=== PATIENT | female | born 1995 | race African-American/Black ===

== ENCOUNTER 2019-09-22 04:18 | Emergency (ER) | payer SELFPAY ==
[2019-09-22 04:25] VITALS: BP 134/75; PULSE 82; RESP 20; TEMP 36.4; O2SAT 100
--- NOTE | 2019-09-22 04:27 | ED_ITS ---
HPI - Female Genitourinary General Chief complaint: [employer] 2ND SHIFT Stated complaint: vaginal itching Time Seen by Provider: 09/22/19 04:20 Source: RN notes reviewed History of Present Illness HPI Narrative: Patient presents emergency department from home for vaginal discharge. Patient states symptoms been ongoing for the past 4 days. States she has had thick white discharge associated with itching. She denies any fevers or chills, abdominal pain nausea vomiting or any other symptoms. Denies any risk of STD. States she has had a history of yeast infection before in the past and feels similar. Patient states she also has been having some itching in the pubic region. She states she used [place] in the region approximately 1 week ago and since that time is noticed several small lesions in the hairline the been consistent with small pimples Related Data Allergies Allergy/AdvReac Type Severity Reaction Status Date / Time No Known Allergies Allergy Verified 09/22/19 04:29 Review of Systems Review of Systems: Narrative: Gen.: Denies fevers or chills ENT: Denies congestion Respiratory: Denies shortness of breath CV: Denies chest pain GI: Denies abdominal pain nausea, emesis or diarrhea see HPI Musculoskeletal: Denies back pain or muscle pain Neuro: Denies numbness or tingling Skin: Denies rash Except as documented, all other systems reviewed and negative PMFSH Past Medical History Medical History (Updated 09/22/19 @ 05:08 by Caleb Rowland DO) Patient denies significant medical history Social History Social History (Updated 09/22/19 @ 04:28 by Caleb Rowland DO) Smoking status: Never smoker Exam Narrative: Exam Narrative: APPEARANCE: No acute distress, nontoxic, resting in bed EYES: EOMI HEENT: Normocephalic, atraumatic, RESPIRATORY: No respiratory distress Clear to auscultation bilaterally with no rhonchi wheezing or rales. CARDIOVASCULAR: Regular rate and rhythm without murmurs rubs or gallops. ABDOMINAL: Soft, nontender, nondistended, no rebound or guarding : In the region of pubic hair there is pustules and erythema consistent with folliculitis, there is no swelling of the labia, there is a moderate amount of thick white discharge consistent with yeast infection, MUSCULOSKELETAl: Moves all extremities. NEURO: Awake and alert. Following commands, speech normal, no focal deficits SKIN:: Warm, dry. No rashes lesions or abrasions PSYCHIATRIC: Normal affect/mood, Course Course Emergency Course: Discussed with patient results of workup and diagnosis. Discussed need for follow-up with primary care, proper use of medication, and reasons to return to the emergency department. Patient understands and agrees to current treatment plan Discharge Plan Discharge Clinical Impression: Candidiasis of vagina, Folliculitis Patient Disposition: Home, Self-Care Condition: Stable Instructions: Antibiotic Form, Yeast Infection (ED), Folliculitis (ED) Additional Instructions: Return for abdominal pain, fever or any other symptoms of concern Prescriptions: New cephalexin [Keflex] 500 mg capsule 500 mg PO Q6H Qty: 21 RF: 0 fluconazole [Diflucan] 150 mg tablet 150 mg PO ONCE Qty: 1 RF: 0 Follow-up/Referrals: PHYSICIAN,HAMMER FITTER [Primary Care Provider] - Adama Lainez MD [Physician] - (Follow-up in 3 to 4 days for further SPEECH LANGUAGE PATHOLOGY ASSISTANT treatment and evaluation) Time of Disposition: 05:10
[2019-09-22] MEDS: FLUCONAZOLE 150 MG TABLET PO (04:56)
[2019-09-22] MEDS: CEPHALEXIN 500 MG CAPSULE PO (04:56)
[2019-09-22 05:17] VITALS: BP 118/84; PULSE 70; RESP 20; O2SAT 100
== END 2019-09-22 05:18 | disposition home or self-care (01) ==
PROVIDERS: Emergency Provider Emergency Medicine
DX: B37.3 Candidiasis of vulva and vagina (principal); L73.9 Follicular disorder, unspecified
CPT/HCPCS: 81025; 87070; 87491; 87591; 87808; 99284; A9270

== ENCOUNTER 2021-07-17 17:21 | Emergency (ER) | payer OTHER, SELFPAY ==
[2021-07-17 17:36] VITALS: BP 143/82; PULSE 78; RESP 16; TEMP 36.3; O2SAT 100
--- NOTE | 2021-07-17 17:50 | PC.NURSE ---
Patient walked out of ED without difficulty and in no distress.
== END 2021-07-18 04:32 | disposition left against medical advice (07) ==
DX: Z53.21 Procedure and treatment not carried out due to patient leaving prior to being seen by health care provider (principal)
CPT/HCPCS: 99199

== ENCOUNTER 2021-09-27 03:34 | Emergency (ER) | payer OTHER, SELFPAY ==
[2021-09-27 03:37] VITALS: BP 133/83; PULSE 84; RESP 17; TEMP 36.4; O2SAT 99
[2021-09-27] MEDS: LIDOCAINE HCL 2% JELLY 30 ML TUBE 1 APPLIC MUCOUS MEM (04:18)
--- NOTE | 2021-09-27 04:23 | ED.EAR ---
HPI - Ear Problem General Chief complaint: Ear Stated complaint: Left ear pain, decreased hearing. Time Seen by Provider: 09/27/21 03:39 Source: patient Mode of arrival: ambulatory Limitations: no limitations History of Present Illness HPI Narrative: This is a 25 year old female who presents for evaluation of left ear pain and cerumen impaction. Patient noticed left ear pain and decreased hearing on . She was evaluated by her PCP and diagnosed with cerumen impaction. She has an appointment with ENT on monday but her pain has gotten worse. She describes left throbbing ear pain. She denies ear drainage, fever , or chills. She has been having runny nose, congestion, cough . She was tested for covid and she reports it is negative. Related Data Allergies Allergy/AdvReac Type Severity Reaction Status Date / Time No Known Allergies Allergy Verified 09/27/21 03:39 Review of Systems Review of Systems: All systems reviewed & are unremarkable except as noted in HPI and below PMFSH Past Medical History Medical History (Updated 09/27/21 @ 05:43 by Shavon Zamora MD) Patient denies significant medical history Social History Social History (Updated 09/22/19 @ 04:28 by Caleb Rowland DO) Smoking status: Never smoker Exam Const: General: alert Orientation/consciousness: patient oriented x3 HENMT: Ears: TM normal on the right, Abnormal EAC present cerumen impaction and excessive cerumen; no edema and no otic discharge and TM abnormal obstructed by cerumen on the left Eyes: EOM: EOMs intact bilaterally Resp: Effort & Inspection: normal respiratory effort and no retractions Auscultation: clear to auscultation bilaterally Cardio: Rate: regular rate Rhythm: regular rhythm Heart sounds: no murmurs Skin: General skin exam: normal color Rashes: no rashes Neuro: General: patient oriented x3 and moves all extremities Psych: Mental Status: mental status grossly normal Affect: normal affect Course Reevaluation(s) Reevaluation #1: I irrigated patient's left ear. I was able to get some cerumen but there is still significant amount. Will place on antibiotics since unable to see TM. She will follow up with ENT on Monday. Date: 09/27/21 Time: 05:40 Vital Signs Vital signs: Vital Signs Temperature 97.6 F 09/27/21 03:37 Pulse Rate 84 09/27/21 03:37 Respiratory Rate 17 09/27/21 03:37 Blood Pressure 133/83 09/27/21 03:37 Pulse Oximetry 99 09/27/21 03:37 Temperature 97.6 F 09/27/21 03:37 Pulse Rate 84 09/27/21 03:37 Respiratory Rate 17 09/27/21 03:37 Blood Pressure 133/83 09/27/21 03:37 Pulse Oximetry 99 09/27/21 03:37 Procedures Ear Wax Removal Left Ear: Ear Wax Removal Date: 09/27/21 Ear Wax Removal Time: 05:00 Results: Re-examined: some cerumen remains and removal reattempted TM Examination: other (unable to see) Patient Tolerated Procedure: other (patient having pain) Complications: pain Technique: ear canal irrigated and ear canal curetted Medical Decision Making Vital Signs Vital Signs: Vital Signs Temperature 97.6 F 09/27/21 03:37 Pulse Rate 84 09/27/21 03:37 Respiratory Rate 17 09/27/21 03:37 Blood Pressure 133/83 09/27/21 03:37 Pulse Oximetry 99 09/27/21 03:37 Temperature 97.6 F 09/27/21 03:37 Pulse Rate 84 09/27/21 03:37 Respiratory Rate 17 09/27/21 03:37 Blood Pressure 133/83 09/27/21 03:37 Pulse Oximetry 99 09/27/21 03:37 Discharge Plan Discharge Clinical Impression: Impacted cerumen of left ear, Acute otalgia Patient Disposition: Home, Self-Care Condition: Stable Instructions: Antibiotic Form, Earache (ED) Additional Instructions: Please follow up with ENT at your appointment. Take medication as prescribed. Prescriptions: New amoxicillin 875 mg tablet 875 mg PO Q12H Qty: 14 RF: 0 ibuprofen 600 mg tablet 600
[2021-09-27] MEDS: HYDROcodone/acetaminophen (*CRX) 5-325 MG TABLET 1 TAB PO (05:53)
[2021-09-27] MEDS: ONDANSETRON HCL ODT 4 MG TABLET PO (05:54)
== END 2021-09-27 06:03 | disposition home or self-care (01) ==
PROVIDERS: Emergency Provider General Practice; PCP Physician Assistant
DX: H61.22 Impacted cerumen, left ear (principal); H92.02 Otalgia, left ear
CPT/HCPCS: 69210; 99283; A9270

== ENCOUNTER 2022-10-27 08:03 | Outpatient (CLI) | payer OTHER, SELFPAY ==
--- NOTE | 2022-10-27 | ECG_ITS ---
Measurements Intervals [place] Rate: 80 P: 67 NH: 165 QRS: 68 QRSD: 72 T: 55 QT: 369 QTc: 426 Interpretive Statements SINUS RHYTHM NORMAL ECG NO PREVIOUS ECG AVAILABLE FOR COMPARISON Electronically Signed On 10-27-2022 9:17:41 CDT by Jose Pringle D.O.
== END 2022-10-27 08:04 | disposition home or self-care (01) ==
PROVIDERS: PCP Physician Assistant; Visit Provider Physician Assistant
DX: Z01.818 Encounter for other preprocedural examination (principal)
CPT/HCPCS: 93005

== ENCOUNTER 2022-11-21 14:25 | Emergency (ER) | payer OTHER, SELFPAY ==
[2022-11-21 14:28] VITALS: BP 128/70; PULSE 97; RESP 18; TEMP 36.2; O2SAT 100
[2022-11-21] MEDS: METHYLNALTREXONE 12 MG/0.6 ML VIAL SUB-Q (15:10)
[2022-11-21 16:58] LABS: Basophils Absolute Auto 0.1 K/mm3 (0.0-0.1); Basophils Percent Auto 0.5 % (0.2-1.2); Eosinophils Percent Auto 0.3 % (0-4.4); Hematocrit 29.3 % (37.0-47.0); Hemoglobin 9.4 g/dL (12.0-15.0); Immature Granulocyte Absolute 0.44 K/mm3 (0.00-0.031); Immature Granulocyte Percent A 3.3 % (0-0.5); Lymphocytes Absolute Auto 1.73 K/mm3 (0.9-3.2); Lymphocytes Percent Auto 12.8 % (18.3-44.2); Mean Corpuscular HGB Conc 32.1 g/dl (32-36); Mean Corpuscular Hemoglobin 29.9 pg (26-34); Mean Corpuscular Volume 93.3 fl (80-100); Mean Platelet Volume 9.3 fl (7.4-10.4); Monocytes Absolute Auto 0.6 K/mm3 (0.1-0.6); Monocytes Percent Auto 4.7 % (2.6-8.5); Neutrophils Absolute Auto 10.6 K/mm3 (1.3-6.7); Neutrophils Percent Auto 78.4 % (45.5-73.1); Nucleated Red Blood Cells Perc 0.2 % (0.0-0.2); Platelet Count Result 446 k/mm3 (150-375); Red Blood Count 3.14 M/mm3 (4.2-5.4); Red Cell Distribution Width 14.1 % (11.5-14.5); White Blood Count 13.5 K/mm3 (4.5-10.0)
[2022-11-21 17:07] LABS: Anion Gap 7 mmol/L (8-16); Blood Urea Nitrogen 7 mg/dL (7-17); Calcium 8.7 mg/dL (8.4-10.2); Carbon Dioxide 29 mmol/L (22-30); Chloride 97 mmol/L (98-107); Estimated CRCL calculation 119 ml/min; Estimated Glomerular Filt Rate > 60; Glucose 130 mg/dL (65-110); Potassium 3.6 mmol/L (3.4-5.0); Sodium 133 mmol/L (137-145)
--- NOTE | 2022-11-21 17:08 | ED.GENADULT ---
HPI - General Adult General Chief complaint: Unspecified Stated complaint: rectal bleeding Time Seen by Provider: 11/21/22 14:52 History of Present Illness HPI narrative: Patient is a 26-year-old female who presents ER with rectal pain and concern for bleeding. Patient underwent [place] butt lift 1 week ago in [facility]. She returned here and has been taking oxycodone for pain. She has been able to have a bowel movement since she had her procedure. No abdominal pain or distention. No fevers or chills or sweats. Reports she is try to use the restroom but cannot get anything to come out and has noticed some spots of red blood. Related Data Allergies Allergy/AdvReac Type Severity Reaction Status Date / Time No Known Allergies Allergy Verified 11/21/22 14:43 Review of Systems Review of Systems: All systems reviewed & are unremarkable except as noted in HPI and below Constitutional: Constitutional: Denies chills and Denies fever(s) Cardiovascular: Cardiovascular: Denies chest pain and Denies radiating jaw, neck or arm pain Respiratory: Respiratory: Denies cough, Denies dyspnea and Denies wheezing Gastrointestinal: Gastrointestinal: Reports abdominal pain, Reports constipation, Denies nausea and Denies vomiting Comments: Blood in PMFSH Past Medical History Medical History (Updated 11/21/22 @ 17:09 by Jesse Erwin MD) Patient denies significant medical history Surgical History Surgical History (Updated 11/21/22 @ 19:41 by Jesse Erwin MD) H/O cosmetic surgery Burkinan butt lift Social History Social History Smoking status: Never smoker Alcohol intake: current Substance use: never Exam Narrative: GENERAL: Uncomfortable appearing, laying on stomach, well-nourished, and in no acute distress. HEAD: Normocephalic, atraumatic. CHEST: Clear to auscultation. No respiratory distress. Rectal: Solid stool protruding from rectum. Removed and no visible fissure or hemorrhoid. EXTREMITIES: Normal range of motion. No edema. SKIN: Warm, dry, no rash. NEURO: Alert and oriented x3. PSYCH: Normal mood and affect. Course Course Emergency Course: [employer] enema provided to patient to relieve her of her constipation. This was a success and patient was discharged with stool softeners. Vital Signs Vital signs: Vital Signs Temperature 97.2 F L 11/21/22 14:28 Pulse Rate 97 11/21/22 14:28 Respiratory Rate 18 11/21/22 14:28 Blood Pressure 128/70 11/21/22 14:28 Pulse Oximetry 100 11/21/22 14:28 Oxygen Delivery Room Air 11/21/22 14:28 Temperature 97.2 F L 11/21/22 14:28 Pulse Rate 97 11/21/22 14:28 Respiratory Rate 18 11/21/22 14:28 Blood Pressure 128/70 11/21/22 14:28 Pulse Oximetry 100 11/21/22 14:28 Oxygen Delivery Room Air 11/21/22 14:28 Medical Decision Making Vital Signs Vital Signs: Vital Signs Temperature 97.2 F L 11/21/22 14:28 Pulse Rate 97 11/21/22 14:28 Respiratory Rate 18 11/21/22 14:28 Blood Pressure 128/70 11/21/22 14:28 Pulse Oximetry 100 11/21/22 14:28 Oxygen Delivery Room Air 11/21/22 14:28 Temperature 97.2 F L 11/21/22 14:28 Pulse Rate 97 11/21/22 14:28 Respiratory Rate 18 11/21/22 14:28 Blood Pressure 128/70 11/21/22 14:28 Pulse Oximetry 100 11/21/22 14:28 Oxygen Delivery Room Air 11/21/22 14:28 Lab Data 11/21/22 16:36 11/21/22 16:36 Labs: Lab Results 11/21/22 11/21/22 Range/Units 16:36 16:36 WBC 13.5 H (4.5-10.0) K/mm3 RBC 3.14 L (4.2-5.4) M/mm3 Hgb 9.4 L (12.0-15.0) g/dL Hct 29.3 L (37.0-47.0) % MCV 93.3 (80-100) fl MCH 29.9 (26-34) pg MCHC 32.1 (32-36) g/dl RDW 14.1 (11.5-14.5) % Plt Count 446 H (150-375) k/mm3 MPV 9.3 (7.4-10.4) fl Immature Gran % (Auto) 3.3 H (0-0.5) % Neut % (Auto) 78.4 H (45.5-73.1) % Lymph % (A
== END 2022-11-21 17:27 | disposition home or self-care (01) ==
PROVIDERS: Emergency Provider Emergency Medicine; PCP Physician Assistant
DX: K59.00 Constipation, unspecified (principal)
CPT/HCPCS: 36415; 80048; 85025; 96372; 99283; J2212